=== PATIENT | male | born 1950 | race Caucasian/White ===

== ENCOUNTER → 2019-06-05 15:06 | Outpatient (CLI) | payer MEDICARE, SELFPAY ==
--- NOTE | ~2019-06-05 | CT_ITS ---
EXAMINATION: CT abdomen pelvis wo con DATE: 06/05/2019 15:32 INDICATION: Right lower quadrant pain. History of hernia repair. TECHNIQUE: Computed tomography (CT) of the abdomen and pelvis was performed without intravenous contr ast. The dose-length product was 1069.89 mGy-cm. Automated exposure control and iterative reconstruct ion technique were employed. COMPARISON: CT dated 12/21/2017 FINDINGS: Lung bases are unremarkable. No significant pleural or pericardial effusion. Heart size nor mal. No significant vascular abnormality. There is a vascular stent in the right femoral artery. No e vidence for aneurysm. No lymphadenopathy. Gallstones. The liver, spleen, pancreas, adrenal glands and kidneys are unremarkable. Nonobstructive bowel gas pattern. Colonic diverticulosis without evidence for diverticulitis. Mildly enlarged prosta te gland. No free air or free fluid. Tiny fat-containing umbilical hernia. There are mild degenerativ e changes of the spine and hips. No acute osseous abnormality. There are changes a right inguinal her cornelio repair. IMPRESSION: 1. No acute abdominal abnormality. 2: Cholelithiasis. 3: Mildly enlarged prostate gland. Reviewed, dictated and finalized at location A. SE INSTRUCTOR
== END ==
PROVIDERS: PCP Internal Medicine; Visit Provider Surgery
DX: R10.31 Right lower quadrant pain (principal); K80.20 Calculus of gallbladder without cholecystitis without obstruction; N40.0 Benign prostatic hyperplasia without lower urinary tract symptoms
CPT/HCPCS: 74176

== ENCOUNTER 2019-10-24 07:03 | Outpatient (CLI) | payer MEDICARE, SELFPAY ==
[2019-10-24 08:57] LABS: Alanine Aminotransferase 22 U/L (4-50); Albumin Level 3.9 g/dL (3.5-5.1); Alkaline Phosphatase 45 U/L (38-126); Aspartate Amino Transferase 26 U/L (17-59); Bilirubin,Total 0.5 mg/dL (0.2-1.3); Blood Urea Nitrogen 20 mg/dL (9-20); Calcium 8.8 mg/dL (8.4-10.2); Carbon Dioxide 28 mmol/L (22-30); Chloride 107 mmol/L (98-107); Cholesterol 154 mg/dL (0-200); Estimated Glomerular Filt Rate > 60; Glucose 115 mg/dL (75-110); HDL Direct 44 mg/dL; Potassium 4.1 mmol/L (3.4-5.0); Sodium 140 mmol/L (137-145); Triglycerides 132 mg/dL (<150)
[2019-10-24 09:37] LABS: LDL Cholesterol Direct 81 mg/dL
[2019-10-24 10:05] LABS: Prostate Specific Antigen 3.3 ng/mL (< OR = 4.0)
== END 2019-10-24 07:04 | disposition home or self-care (01) ==
PROVIDERS: PCP Internal Medicine; Visit Provider Internal Medicine
DX: E78.5 Hyperlipidemia, unspecified (principal); I10 Essential (primary) hypertension; E03.9 Hypothyroidism, unspecified; Z12.5 Encounter for screening for malignant neoplasm of prostate; Z79.899 Other long term (current) drug therapy
CPT/HCPCS: 36415; 80053; 80061; 84153; 84443; G0103

== ENCOUNTER 2020-04-25 06:51 | Outpatient (CLI) | payer MEDICARE, SELFPAY ==
[2020-04-25 07:42] LABS: Alanine Aminotransferase 25 U/L (4-50); Albumin Level 3.8 g/dL (3.5-5.1); Alkaline Phosphatase 46 U/L (38-126); Anion Gap 2 mmol/L (8-16); Aspartate Amino Transferase 26 U/L (17-59); Bilirubin,Total 0.7 mg/dL (0.2-1.3); Blood Urea Nitrogen 15 mg/dL (9-20); Calcium 9.3 mg/dL (8.4-10.2); Carbon Dioxide 33 mmol/L (22-30); Chloride 105 mmol/L (98-107); Cholesterol 170 mg/dL (0-200); Estimated Glomerular Filt Rate > 60; Glucose 122 mg/dL (75-110); HDL Direct 44 mg/dL; Potassium 4.6 mmol/L (3.4-5.0); Sodium 140 mmol/L (137-145); Triglycerides 202 mg/dL (<150)
[2020-04-25 07:53] LABS: LDL Cholesterol Direct 80 mg/dL
== END 2020-04-25 06:52 | disposition home or self-care (01) ==
PROVIDERS: PCP Nurse Practitioner; Visit Provider Nurse Practitioner
DX: E78.5 Hyperlipidemia, unspecified (principal); E03.9 Hypothyroidism, unspecified
CPT/HCPCS: 36415; 80053; 80061; 84443

== ENCOUNTER 2021-04-21 10:01 | Emergency (ER) | payer MEDICARE, SELFPAY ==
[2021-04-21 10:15] VITALS: BP 138/73; PULSE 74; RESP 18; TEMP 36.8; O2SAT 98
--- NOTE | 2021-04-21 10:49 | ED.URI ---
HPI - URI/Sore Throat General Chief Complaint: Upper Respiratory Infection Stated Complaint: congestion,cough Time Seen by Provider: 04/21/21 10:26 Source: patient and RN notes reviewed Mode of arrival: ambulatory Limitations: no limitations History of Present Illness HPI Narrative: Patient presents today complaining of a 5-day history of nasal congestion, postnasal drip, productive cough, rhinorrhea. Denies fever or shortness of breath. He has been taking Sinex without relief. MD elicited complaint: cough, rhinorrhea and nasal congestion Related Data Home Medications Medication Instructions Recorded Confirmed amlodipine 5 mg DAILY 04/21/21 04/21/21 aspirin 81 mg PO DAILY 04/21/21 04/21/21 cholecalciferol (vitamin D3) 125 mcg PO DAILY 04/21/21 04/21/21 hydrochlorothiazide 12.5 mg DAILY 04/21/21 04/21/21 mutja-bh-5-kdt-wjg-kaqvgfg-ast 1 cap PO DAILY 04/21/21 04/21/21 [krill oil] levothyroxine 112 mcg DAILY 04/21/21 04/21/21 losartan 100 mg DAILY 04/21/21 04/21/21 omeprazole 40 mg DAILY 04/21/21 04/21/21 rosuvastatin 20 mg DAILY 04/21/21 04/21/21 Allergies Allergy/AdvReac Type Severity Reaction Status Date / Time No Known Allergies Allergy Verified 04/21/21 10:23 Review of Systems Review of Systems: CONSTITUTIONAL: Denies body aches, fever, chills, or sweats. EYES: Denies visual changes, redness, or discharge. ENT: Denies sore throat, or otalgia.+ Postnasal drip, congestion, rhinorrhea CARDIOVASCULAR: Denies chest pain, palpitations, or edema. RESPIRATORY: Denies dyspnea.+ Cough GASTROINTESTINAL: Denies abdominal pain, nausea, vomiting, or diarrhea. GENITOURINARY: Denies dysuria or hematuria. SKIN: Denies rash, itching, or wounds. MUSCULOSKELETAL: Denies back pain, joint pain, or myalgia. NEUROLOGIC: Denies headache, numbness, tingling, or weakness. PSYCH: Denies depression or anxiety. [facility] Past Medical History Medical History (Updated 04/21/21 @ 10:53 by Criss Chand, LINEN SUPPLY LOAD BUILDER, ) Adult hypothyroidism Benign essential hypertension Chronic GERD Congestive heart failure, unspecified Coronary artery disease involving [place] coronary artery of [place] heart History of esophageal reflux On snf drug therapy EVY (obstructive sleep apnea) Other and unspecified hyperlipidemia Recurrent right inguinal hernia Urinary frequency Surgical History Surgical History History of heart artery stent Hx of cataract surgery Family History Family History Father Hypertension Malignant neoplasm of prostate, Onset Age: 78 Patient's father is Family history of aortic aneurysm, Onset Age: 78 Mother Cerebrovascular accident Social History Social History Smoking status: Former smoker Smoking end date: 04/19/07 Alcohol intake: never Comments At time of signature, I have reviewed and agree with nursing past medical, surgical, social and family history unless otherwise noted. Please see nursing chart for further information. There is no relevant family history pertinent to the presenting complaint Exam Narrative: GENERAL: Well-appearing, well-nourished, and in no acute distress. HEAD: Normocephalic, atraumatic. EYES: EOMI. No redness or drainage. Conjunctivae normal. ENT: Mucous membranes pink and moist. Nares clear with rhinorrhea. TMs normal bilaterally. Throat normal. Uvula midline. NECK: Normal AROM. Supple. No lymphadenopathy. CHEST: No respiratory distress. Clear to auscultation. HEART: Regular rate and rhythm. No murmur appreciated. Normal peripheral pulses. EXTREMITIES: Normal range of motion. No edema. SKIN: Warm, dry, no rash. Capillary refill normal. Normal skin turgor. NEURO: No focal deficits. Alert and oriented x3. Gait steady. PSYCH: Normal affect. No signs of depression or anxiety. Cou
== END 2021-04-21 10:57 | disposition home or self-care (01) ==
PROVIDERS: Emergency Provider Nurse Practitioner; PCP Internal Medicine
DX: J06.9 Acute upper respiratory infection, unspecified (principal); Z20.822 Contact with and (suspected) exposure to COVID-19; Z87.891 Personal history of nicotine dependence; E03.9 Hypothyroidism, unspecified; K21.9 Gastro-esophageal reflux disease without esophagitis; I11.0 Hypertensive heart disease with heart failure; I50.9 Heart failure, unspecified; I25.10 Atherosclerotic heart disease of native coronary artery without angina pectoris; G47.33 Obstructive sleep apnea (adult) (pediatric); Z95.5 Presence of coronary angioplasty implant and graft
CPT/HCPCS: 87426; 87804; 99213; C9803; G0463

== ENCOUNTER 2023-02-10 10:20 | Emergency (ER) | payer MEDICARE, SELFPAY ==
[2023-02-10 10:27] VITALS: BP 154/87; PULSE 65; RESP 16; TEMP 36.4; O2SAT 100
--- NOTE | 2023-02-10 11:02 | ECG_ITS ---
Measurements Intervals [place] Rate: 65 P: 25 ND: 178 QRS: -37 QRSD: 87 T: -11 QT: 425 QTc: 444 Interpretive Statements SINUS RHYTHM MARKED LEFT AXIS DEVIATION [QRS AXIS < -30] VOLTAGE CRITERIA FOR LVH [MEETS CRITERIA IN ONE OF: R(aVL), S(V1), R(V5), R(V5/V6)+S(V1)] NONSPECIFIC T-WAVE ABNORMALITY NO PREVIOUS ECG AVAILABLE FOR COMPARISON Electronically Signed On 02-10-2023 11:23:57 CDT by Stacey Rivera M.D.
--- NOTE | 2023-02-10 11:02 | ED.DIZZY ---
HPI - Dizziness General Chief Complaint: Dizziness Stated Complaint: Dizzy and Nausea Source: patient, family and RN notes reviewed History of Present Illness HPI Narrative: 72 yo M presents to urgent care with at side. Pt states at 7 am today, he suddenly became dizzy. Pt reports nausea and a pressure in the back of his head. Denies any numbness, tingling, blurry vision, recent fall or head injury. Denies any vomiting, fevers, or chills. Denies any chest pain or SOB. Pt states he had an episode of dizziness about a week ago that lasted only 30 minutes. Denies any ear ringing but does report some right sided sinus congestion. Pt states he felt fine this morning when he woke up at 5 am. Related Data Home Medications Medication Instructions Recorded Confirmed aspirin 81 mg tablet 81 mg PO DAILY 04/21/21 02/10/23 cholecalciferol (vitamin D3) 125 125 mcg PO DAILY 04/21/21 02/10/23 mcg (5,000 unit) tablet hydrochlorothiazide 12.5 mg capsule 12.5 mg DAILY 04/21/21 02/10/23 krill 1,000 mg-omega-3 170 mg-dha 1 cap PO DAILY 04/21/21 02/10/23 50 mg-epa 80 pu-acmuur-aqpdd capsule (krill oil) losartan 100 mg tablet 100 mg PO DAILY 04/21/21 02/10/23 coenzyme [id number] E 100 mg-100 1 cap PO DAILY 05/12/22 02/10/23 unit capsule Allergies Allergy/AdvReac Type Severity Reaction Status Date / Time No Known Allergies Allergy Verified 02/10/23 10:56 Review of Systems Review of Systems: Pertinent positives and pertinent negatives per HPI. [facility] Past Medical History Medical History Adult hypothyroidism Benign essential hypertension Congestive heart failure, unspecified Coronary artery disease involving [place] coronary artery of [place] heart History of esophageal reflux On intermodal owner operator truck driver drug therapy EVY (obstructive sleep apnea) Other and unspecified hyperlipidemia Recurrent right inguinal hernia Urinary frequency Surgical History Surgical History History of heart artery stent Hx of cataract surgery Family History Family History Father Hypertension Malignant neoplasm of prostate, Onset Age: 78 Patient's father is Family history of aortic aneurysm, Onset Age: 78 Mother Cerebrovascular accident Social History Social History Smoking status: Former smoker Tobacco type: cigars Smoking end date: 04/19/07 Alcohol intake: current Drinks per week: 1 Alcohol use details: occasionally Substance use: never Substance use type: does not use Lack of Transportation: No Lack of Food: Never True Current Housing: I Have Housing Concerned About Future Housing: No Difficulty Paying Gas/Electric Bills: No Difficulty Paying for Meds: No Currently Unemployed: No Education: Bachelor's Degree Difficulty w/ Childcare or Family Care: No Living arrangements: with family Occupation/Education: retired Comments At the time of my signature, I reviewed and agree with the nursing past medical, surgical, social, and family history. There is no relevant family history pertinent to the patient complaint. Exam Narrative: GENERAL: This is a well-nourished, well-developed patient, in no apparent distress. HEAD: normocephalic, atraumatic. EYES: Sclera clear/white. Vision is grossly intact. EARS: External ears normal, auditory canals clear and without drainage, TMs normal without perforation. Hearing grossly intact. NOSE: External nose normal with no obvious nasal discharge, nares without redness, no rhinorrhea. THROAT: Mucous membranes moist, posterior pharynx clear. NECK: Neck supple, non-tender without lymphadenopathy, masses or thyromegaly. CARDIOVASCULAR: Regular rate and rhythm without murmurs, gallops, or rubs. RESPIRATORY: Clear to auscultation.
[2023-02-10 11:10] LABS: Glucose Point of Care 136 mg/dl (65-105)
== END 2023-02-10 11:20 | disposition short-term general hospital (02) ==
PROVIDERS: Emergency Provider Nurse Practitioner Family; PCP Nurse Practitioner
DX: R42 Dizziness and giddiness (principal); Z87.891 Personal history of nicotine dependence; E03.9 Hypothyroidism, unspecified; I11.0 Hypertensive heart disease with heart failure; I50.9 Heart failure, unspecified; I25.10 Atherosclerotic heart disease of native coronary artery without angina pectoris; K21.9 Gastro-esophageal reflux disease without esophagitis; E78.49 Other hyperlipidemia; Z95.5 Presence of coronary angioplasty implant and graft
CPT/HCPCS: 82948; 93005; 99213; 99215; G0463

== ENCOUNTER 2023-02-10 11:48 | Emergency (ER) | payer MEDICARE, SELFPAY ==
[2023-02-10] VITALS (7 sets, daily range): BP systolic 156–172; BP diastolic 80–102; PULSE 61–76; RESP 11–16; TEMP 36.4; O2SAT 98–100
--- NOTE | ~2023-02-10 | CT_ITS ---
Non-contrast Head CT History: Dizziness Technique: Axial non-contrast imaging of the brain was performed. Dose reduction technique was used on this scan by utilizing automated exposure control and iterative reconstruction technique. The dose -length product (DLP) was 357.38 mGy-cm. Findings: There is no evidence of intracranial hemorrhage, mass lesion, or acute infarct. Brain par enchyma appears normal. The ventricles and subarachnoid spaces are normal in size. The calvarium ap pears normal. The visualized paranasal sinuses and mastoid air cells are clear. Impression: No significant abnormality seen. Reviewed, dictated and finalized at location . Impression: No significant abnormality seen.
--- NOTE | 2023-02-10 13:02 | ED.DIZZY ---
HPI - Dizziness General Chief Complaint: Dizziness Stated Complaint: dizzy Time Seen by Provider: 02/10/23 12:29 History of Present Illness HPI Narrative: 72-year-old male present emergency department for evaluation of vertigo symptoms. Patient states when he woke up this morning he felt fine but after eating breakfast he stood up to walk and had onset of a spinning sensation. Patient denies any lightheadedness or sensation he was going to pass out. Patient states the symptoms were worsened with movement. Patient states he bent over to tie his shoes and felt worsening dizziness. Related Data Home Medications Medication Instructions Recorded Confirmed aspirin 81 mg tablet 81 mg PO DAILY 04/21/21 02/10/23 cholecalciferol (vitamin D3) 125 125 mcg PO DAILY 04/21/21 02/10/23 mcg (5,000 unit) tablet hydrochlorothiazide 12.5 mg capsule 12.5 mg DAILY 04/21/21 02/10/23 krill 1,000 mg-omega-3 170 mg-dha 1 cap PO DAILY 04/21/21 02/10/23 50 mg-epa 80 ua-dmkieq-lipyf capsule (krill oil) losartan 100 mg tablet 100 mg PO DAILY 04/21/21 02/10/23 coenzyme [id number] E 100 mg-100 1 cap PO DAILY 05/12/22 02/10/23 unit capsule Allergies Allergy/AdvReac Type Severity Reaction Status Date / Time No Known Allergies Allergy Verified 02/10/23 10:56 Review of Systems Review of Systems: All systems reviewed & are unremarkable except as noted in HPI and below PMFSH Past Medical History Medical History Adult hypothyroidism Benign essential hypertension Congestive heart failure, unspecified Coronary artery disease involving [place] coronary artery of [place] heart History of esophageal reflux On [facility] drug therapy EVY (obstructive sleep apnea) Other and unspecified hyperlipidemia Recurrent right inguinal hernia Urinary frequency Surgical History Surgical History History of heart artery stent Hx of cataract surgery Family History Family History Father Hypertension Malignant neoplasm of prostate, Onset Age: 78 Patient's father is Family history of aortic aneurysm, Onset Age: 78 Mother Cerebrovascular accident Social History Social History Smoking status: Former smoker Tobacco type: cigars Smoking end date: 04/19/07 Alcohol intake: current Drinks per week: 1 Alcohol use details: occasionally Substance use: never Substance use type: does not use Lack of Transportation: No Lack of Food: Never True Current Housing: I Have Housing Concerned About Future Housing: No Difficulty Paying Gas/Electric Bills: No Difficulty Paying for Meds: No Currently Unemployed: No Education: Bachelor's Degree Difficulty w/ Childcare or Family Care: No Living arrangements: with family Occupation/Education: retired Exam Narrative: APPEARANCE: Well appearing, no pain, no distress, well-nourished. HEAD: normocephalic, atraumatic. EYES: PERRLA/EOMI, conjunctivae clear. NOSE: Normal no drainage EARS:TMS clear with good light reflex. Mild cerumen without impaction THROAT: Pharynx clear, no exudate. NECK: Supple. No adenopathy, no masses. RESPIRATORY: Airway patent, respirations nonlabored. Clear to auscultation bilaterally, no rales, rhonchi, wheezing. CARDIOVASCULAR: Regular rate and rhythm without murmurs rubs or gallops. ABDOMINAL: Soft, nontender, nondistended, normal bowel sounds MUSCULOSKELETAL: Moves all extremities. Strength/ROM intact, No edema, No calf tenderness. NEURO: Alert. Cranial nerves II through XII intact. Grossly intact SKIN: Warm, dry. Normal Color Course Course Emergency Course: 72-year-old male presented the ED for evaluation of vertigo. Patient does feel improved with treatment. Patient is afebrile with no leukocytosis and a stab
[2023-02-10] MEDS: MECLIZINE HCL 25 MG TABLET PO (13:14)
[2023-02-10 13:51] LABS: Basophils Percent Auto 0.5 % (0.2-1.2); Eosinophils Absolute Auto 0.1 K/mm3 (0-0.3); Eosinophils Percent Auto 0.9 % (0-4.4); Hematocrit 46.9 % (42.0-52.0); Hemoglobin 15.9 g/dL (14.0-18.0); Immature Granulocyte Absolute 0.02 K/mm3 (0.00-0.031); Immature Granulocyte Percent A 0.3 % (0-0.5); Lymphocytes Absolute Auto 1.56 K/mm3 (0.9-3.2); Lymphocytes Percent Auto 20.8 % (18.3-44.2); Mean Corpuscular HGB Conc 33.9 g/dl (32-36); Mean Corpuscular Hemoglobin 31.5 pg (26-34); Mean Corpuscular Volume 92.9 fl (80-100); Mean Platelet Volume 9.6 fl (7.4-10.4); Monocytes Absolute Auto 0.4 K/mm3 (0.1-0.6); Monocytes Percent Auto 5.7 % (2.6-8.5); Neutrophils Absolute Auto 5.4 K/mm3 (1.3-6.7); Neutrophils Percent Auto 71.8 % (45.5-73.1); Platelet Count Result 235 k/mm3 (150-375); Red Blood Count 5.05 M/mm3 (4.6-6.20); Red Cell Distribution Width 13.1 % (11.5-14.5); White Blood Count 7.5 K/mm3 (4.5-10.0)
[2023-02-10 13:56] LABS: Alanine Aminotransferase 34 U/L (6-50); Alkaline Phosphatase 48 U/L (38-126); Anion Gap 2 mmol/L (8-16); Aspartate Amino Transferase 31 U/L (17-59); Bilirubin,Total 0.9 mg/dL (0.2-1.3); Blood Urea Nitrogen 15 mg/dL (9-20); Calcium 9.2 mg/dL (8.4-10.2); Carbon Dioxide 29 mmol/L (22-30); Chloride 103 mmol/L (98-107); Estimated CRCL calculation 103 ml/min; Estimated Glomerular Filt Rate > 60; Glucose 155 mg/dL (65-110); INR 0.9; Potassium 3.8 mmol/L (3.4-5.0); Prothrombin Time 12.3 Seconds (11.1-14.7); Sodium 134 mmol/L (137-145)
[2023-02-10 13:57] LABS: Partial Thromboplastin Time 24.5 SECONDS (22.3-36.8)
[2023-02-10 14:25] LABS: Influenza A QL RT-PCR Negative (Negative); Influenza B QL RT-PCR Negative (Negative); RSV RNA, RT-PCR Negative (Negative); SARS-CoV-2 RNA PCR Negative (Negative)
== END 2023-02-10 14:45 | disposition home or self-care (01) ==
PROVIDERS: Emergency Provider Emergency Medicine; PCP Nurse Practitioner
DX: R42 Dizziness and giddiness (principal); Z11.52 Encounter for screening for COVID-19; I50.9 Heart failure, unspecified; I11.0 Hypertensive heart disease with heart failure; I25.10 Atherosclerotic heart disease of native coronary artery without angina pectoris; E03.9 Hypothyroidism, unspecified; E78.49 Other hyperlipidemia; G47.33 Obstructive sleep apnea (adult) (pediatric); K21.9 Gastro-esophageal reflux disease without esophagitis; Z95.5 Presence of coronary angioplasty implant and graft; Z98.49 Cataract extraction status, unspecified eye; Z87.891 Personal history of nicotine dependence; Z79.82 Long term (current) use of aspirin
CPT/HCPCS: 36415; 70450; 80053; 82948; 85025; 85610; 85730; 87637; 93005; 99284; A9270

== ENCOUNTER 2023-03-26 15:50 | Emergency (ER) | payer MEDICARE, SELFPAY ==
[2023-03-26 16:10] VITALS: BP 166/80; PULSE 75; RESP 18; TEMP 36.4; O2SAT 97
--- NOTE | 2023-03-26 16:31 | ED.URI ---
HPI - URI/Sore Throat General Chief Complaint: Upper Respiratory Infection Stated Complaint: cough, drainage Time Seen by Provider: 03/26/23 16:31 Source: patient Mode of arrival: ambulatory Limitations: no limitations History of Present Illness HPI Narrative: 72-year-old male presents with complaint of nasal congestion, postnasal drainage, intermittent throat irritation, cough for the past 2 weeks. Reports mild sinus pressure. States has tried ipzj-les-snrzdug cough medication with no relief of cough. Coughing all night. Reports abdominal muscle and back pain aching from coughing. Denies chest pain or shortness of breath. Afebrile. All systems reviewed and negative except as noted above. Related Data Home Medications Medication Instructions Recorded Confirmed aspirin 81 mg tablet 81 mg PO DAILY 04/21/21 03/26/23 cholecalciferol (vitamin D3) 125 125 mcg PO DAILY 04/21/21 03/26/23 mcg (5,000 unit) tablet hydrochlorothiazide 12.5 mg capsule 12.5 mg DAILY 04/21/21 03/26/23 krill 1,000 mg-omega-3 170 mg-dha 1 cap PO DAILY 04/21/21 03/26/23 50 mg-epa 80 vu-guncku-igfld capsule (krill oil) losartan 100 mg tablet 100 mg PO DAILY 04/21/21 03/26/23 coenzyme I25-tovlvwa E 100 mg-100 1 cap PO DAILY 05/12/22 03/26/23 unit capsule Allergies Allergy/AdvReac Type Severity Reaction Status Date / Time No Known Allergies Allergy Verified 03/26/23 16:33 Review of Systems Review of Systems: CONSTITUTIONAL: Denies fever, chills, or sweats. reports fatigue. EYES: Denies visual changes, redness, or discharge. ENT: reports rhinorrhea, congestion, sore throat. Denies otalgia. CARDIOVASCULAR: Denies chest pain, palpitations, or edema. RESPIRATORY: Reports cough. Denies dyspnea. GASTROINTESTINAL: Denies abdominal pain, nausea, vomiting, or diarrhea. GENITOURINARY: Denies dysuria or hematuria. SKIN: Denies rash or itching. MUSCULOSKELETAL: Denies back pain, joint pain, or myalgia. NEUROLOGIC: Denies headache, numbness, or weakness. PSYCHIATRIC: Denies anxiety or depression. All other systems reviewed are negative, except as documented in HPI. PENDING SALE TO [facility] Past Medical History Medical History Adult hypothyroidism Benign essential hypertension Congestive heart failure, unspecified Coronary artery disease involving [place] coronary artery of [place] heart History of esophageal reflux On buttermaker drug therapy EVY (obstructive sleep apnea) Other and unspecified hyperlipidemia Recurrent right inguinal hernia Urinary frequency Surgical History Surgical History History of heart artery stent Hx of cataract surgery Family History Family History Father Hypertension Malignant neoplasm of prostate, Onset Age: 78 Patient's father is Family history of aortic aneurysm, Onset Age: 78 Mother Cerebrovascular accident Social History Social History Smoking status: Former smoker Tobacco type: cigars Smoking end date: 04/19/07 Alcohol intake: current Drinks per week: 1 Alcohol use details: occasionally Substance use: never Substance use type: does not use Lack of Transportation: No Lack of Food: Never True Current Housing: I Have Housing Concerned About Future Housing: No Difficulty Paying Gas/Electric Bills: No Difficulty Paying for Meds: No Currently Unemployed: No Education: Bachelor's Degree Difficulty w/ Childcare or Family Care: No Living arrangements: with family Occupation/Education: retired Comments At time of signature, agree with nursing past medical, surgical, social and family history. There is no relevant family history pertinent to the presenting complaint. Exam Narrative: GENERAL: This is a well-nourished, well-develo
== END 2023-03-26 16:55 | disposition home or self-care (01) ==
PROVIDERS: Emergency Provider Nurse Practitioner Family; PCP Nurse Practitioner
DX: J01.90 Acute sinusitis, unspecified (principal); B96.89 Other specified bacterial agents as the cause of diseases classified elsewhere; R05.1 Acute cough; E03.9 Hypothyroidism, unspecified; I11.0 Hypertensive heart disease with heart failure; I50.9 Heart failure, unspecified; I25.10 Atherosclerotic heart disease of native coronary artery without angina pectoris; E78.5 Hyperlipidemia, unspecified; Z79.899 Other long term (current) drug therapy; Z79.82 Long term (current) use of aspirin; Z87.891 Personal history of nicotine dependence
CPT/HCPCS: 99213; G0463

== ENCOUNTER → 2023-04-08 13:56 | Outpatient (CLI) | payer MEDICARE, SELFPAY ==
--- NOTE | ~2023-04-08 | XR_ITS ---
EXAMINATION: XR chest 2V Exam Date/Time: 04/08/2023 14:20 BUILDING CODE ADMINISTRATOR HISTORY: R05.9 - Cough, unspecified Comparison: 06/20/2007. RESULT: Lines, tubes, and devices: None. Lungs and pleura: Clear. Cardiomediastinal silhouette: Stable. Other: No acute osseous or upper abdominal finding. IMPRESSION: No acute cardiopulmonary process. Reviewed, dictated and finalized at location K. DING CODE ADMINISTRATOR
== END ==
PROVIDERS: PCP Nurse Practitioner Family; Visit Provider Nurse Practitioner Family
DX: R05.9 Cough, unspecified (principal)
CPT/HCPCS: 71046

== ENCOUNTER 2023-04-22 14:45 | Outpatient (CLI) | payer MEDICARE, SELFPAY ==
--- NOTE | ~2023-04-22 | US_ITS ---
EXAMINATION: US carotid duplex BI DATE: 04/22/2023 15:33 INDICATION: Carotid atherosclerosis presenting with vertigo TECHNIQUE: Grayscale, color Doppler, and pulsed Doppler images of the cervical carotid arteries were obtained. The degree of vessel stenosis is placed in one of the following categories: normal, <50%, 5 0-69%, >=70% but less than near-occlusion, near-occlusion, or total occlusion. Note that percent sten osis relative to normal distal artery lumen diameter is indirectly measured from velocity measurement s as described by Mohsen, et al. Radiology 2003; 229:[id number]. COMPARISON: 02/28/2008 FINDINGS: RIGHT: The right common carotid artery (CCA) peak systolic velocity (PSV) is 105 cm/s. The right internal ca rotid artery (ICA) PSV is 92 cm/s. The right ICA end-diastolic velocity (EDV) is 24 cm/s. The right I CA/CCA PSV ratio is 0.9. Grayscale and color Doppler images yield an estimate of <50% diameter reduct ion from plaque in the ICA. The external carotid artery (ECA) PSV is 112 cm/s. There is antegrade evelin w in the right vertebral artery. LEFT: The left CCA PSV is 115 cm/s. The left ICA PSV is 100 cm/s. The left ICA EDV is 32 cm/s. The left ICA /CCA PSV ratio is 0.9. Grayscale and color Doppler images yield an estimate of <50% diameter reductio n from plaque in the ICA. The ECA PSV is 89 cm/s. There is antegrade flow in the left vertebral arter y. IMPRESSION: 1. <50% stenosis in the right internal carotid artery. 2. <50% stenosis in the left internal carotid artery. Reviewed, dictated and finalized at location A. HEAD CRANE INSPECTOR
== END 2023-04-22 14:46 | disposition home or self-care (01) ==
PROVIDERS: PCP Nurse Practitioner Family; Visit Provider Nurse Practitioner Family
DX: R26.89 Other abnormalities of gait and mobility (principal); H81.10 Benign paroxysmal vertigo, unspecified ear; I65.23 Occlusion and stenosis of bilateral carotid arteries
CPT/HCPCS: 93880

== ENCOUNTER 2024-01-16 12:55 | Emergency (ER) | payer MEDICARE, SELFPAY ==
[2024-01-16 13:05] VITALS: BP 136/74; PULSE 73; RESP 18; TEMP 36.6; O2SAT 96
[2024-01-16 13:06] VITALS: BP 136/74; PULSE 73; RESP 18; TEMP 36.6; O2SAT 96
--- NOTE | 2024-01-16 13:31 | ED.EXTPRO ---
HPI - Extremity Problem General Chief complaint: Extremity Problem,Nontraumatic Stated complaint: RT Foot Pain Time Seen by Provider: 01/16/24 13:12 Source: patient and family () Mode of arrival: ambulatory Limitations: no limitations History of Present Illness HPI Narrative: Patient presents today complaining of right foot and lower leg pain x4 days. Pain initially started after he had mowed while on uneven ground. After he had mode he felt that he had strained his foot and calf area and felt that he had to stretch it out well before proceeding. Since that time his pain has persisted in the heel area radiating to the calf as well as in the anterior ankle extending to the [place]. Today when he without with his doing some shopping for longer period of time the pain worsened and patient started limping. He currently rates his pain 5/10. Since onset of pain patient had been elevating his leg to help with pain. He does report some mild swelling at the ankle, but also reports that he has swelling at the left ankle as well at baseline. Today he had some very mild tingling to the tips of his toes that is intermittent in nature. He has been taking Tylenol for pain with some mild relief. Patient's daughter is a nurse and has told patient that he needed to come in to be evaluated for a DVT. Related Data Home Medications Medication Instructions Recorded Confirmed aspirin 81 mg tablet 81 mg PO DAILY 04/21/21 01/16/24 cholecalciferol (vitamin D3) 125 125 mcg PO DAILY 04/21/21 01/16/24 mcg (5,000 unit) tablet hydrochlorothiazide 12.5 mg capsule 12.5 mg DAILY 04/21/21 01/16/24 krill 1,000 mg-omega-3 170 mg-dha 1 cap PO DAILY 04/21/21 01/16/24 50 mg-epa 80 tl-ysyobx-vazea capsule (krill oil) losartan 100 mg tablet 100 mg PO DAILY 04/21/21 01/16/24 coenzyme [id number]-hmivytk E 100 mg-100 1 cap PO DAILY 05/12/22 11/22/23 unit capsule Allergies Allergy/AdvReac Type Severity Reaction Status Date / Time No Known Allergies Allergy Verified 01/16/24 13:05 Review of Systems Review of Systems: CONSTITUTIONAL: Denies body aches, fever, chills, or sweats. EYES: Denies visual changes, redness, or discharge. ENT: Denies rhinorrhea, congestion, sore throat, or otalgia. CARDIOVASCULAR: Denies chest pain, palpitations, or edema. RESPIRATORY: Denies cough or dyspnea. GASTROINTESTINAL: Denies abdominal pain, nausea, vomiting, or diarrhea. GENITOURINARY: Denies dysuria or hematuria. SKIN: Denies rash, itching, or wounds. MUSCULOSKELETAL: Right foot and lower leg pain NEUROLOGIC: Denies headache, numbness, or weakness.+ intermittent toe tingling PSYCH: Denies depression or anxiety. [facility] Past Medical History Medical History Adult hypothyroidism Benign essential hypertension Congestive heart failure, unspecified Coronary artery disease involving [place] coronary artery of [place] heart History of esophageal reflux On [facility] drug therapy EVY (obstructive sleep apnea) Other and unspecified hyperlipidemia Recurrent right inguinal hernia Urinary frequency Surgical History Surgical History History of heart artery stent Hx of cataract surgery Family History Family History Father Hypertension Malignant neoplasm of prostate, Onset Age: 78 Patient's father is Family history of aortic aneurysm, Onset Age: 78 Mother Cerebrovascular accident Social History Social History Smoking status: Former smoker Tobacco type: cigars Smoking end date: 04/19/07 Alcohol intake: current Drinks per week: 1 Alcohol use details: occasionally Substance use: never Substance use type: does not use Do You Feel Safe in your Home?: Yes Lack of Transportation: No Lack of Food: Ne
== END 2024-01-16 13:35 | disposition home or self-care (01) ==
PROVIDERS: Emergency Provider Nurse Practitioner; PCP Nurse Practitioner Family
DX: S86.911A Strain of unspecified muscle(s) and tendon(s) at lower leg level, right leg, initial encounter (principal); X50.0XXA Overexertion from strenuous movement or load, initial encounter; Y93.H9 Activity, other involving exterior property and land maintenance, building and construction; E03.9 Hypothyroidism, unspecified; I10 Essential (primary) hypertension; I50.9 Heart failure, unspecified; I25.10 Atherosclerotic heart disease of native coronary artery without angina pectoris; E78.5 Hyperlipidemia, unspecified; Z95.5 Presence of coronary angioplasty implant and graft; Z87.891 Personal history of nicotine dependence; Z79.82 Long term (current) use of aspirin
CPT/HCPCS: 99212; G0463

== ENCOUNTER 2024-03-20 12:09 | Outpatient (CLI) | payer MEDICARE, SELFPAY ==
--- NOTE | ~2024-03-20 | US_ITS ---
EXAMINATION: US art doppler w press ESA DATE: 03/20/2024 12:51 INDICATION: Peripheral arterial disease. TECHNIQUE: Segmental pressures and plethysmographic and Doppler waveforms of the brachial and lower e xtremity arteries were obtained. COMPARISON: None. FINDINGS: Right and left brachial artery pressures of 138 mm Hg and 141 mm Hg, respectively, are concordant (no rmal difference <= 30 mmHg). The right ankle-brachial index (ANNABELLE) is 0.50 (normal >= 0.9-1.0). The right great toe-brachial index (TBI) is 0.31 (normal >= 0.65). Arterial Doppler waveforms are monophasic from common femoral artery to the ankle. The left ANNABELLE is 1.18. The left TBI is 0.96. Arterial Doppler waveforms are triphasic from common femo ral artery to dorsalis pedis. IMPRESSION: 1. Moderately decreased right ANNABELLE, consistent with right-sided arterial occlusive disease. Reviewed, dictated and finalized at location A. TRUCTION INSPECTOR IMPRESSION: 1. Moderately decreased right ANNABELLE, consistent with right-sided arterial occlusi ve disease.
== END 2024-03-20 12:10 | disposition home or self-care (01) ==
LOC: CHSIMG 12:12
PROVIDERS: PCP Nurse Practitioner Family; Visit Provider Podiatrist Foot & Ankle Surgery
DX: I73.9 Peripheral vascular disease, unspecified (principal)
CPT/HCPCS: 93923

== ENCOUNTER 2024-06-07 09:15 | Outpatient (CLI) | payer MEDICARE, SELFPAY ==
--- NOTE | ~2024-06-07 | US_ITS ---
EXAMINATION: US soft tissue head and neck DATE: 06/07/2024 09:27 INDICATION: Localized enlarged lymph nodes TECHNIQUE: Multiple grayscale and Doppler ultrasound images of the palpable nodule at the right neck were obtained. COMPARISON: None FINDINGS: Vascular flow is seen within a very hypoechoic 3.1 x 1.5 x 3.3 cm lymph node at the right neck. IMPRESSION: 1. Enlarged 3.3 x 3.1 x 1.5 cm right cervical lymph node at the region of concern which could be eith er reactive, metastatic or lymphoma. Depending on the level of clinical suspicion could consider eith er ultrasound-guided core needle biopsy or clinical follow-up with subsequent imaging/biopsy should t here be no decrease in size following resolution of patient's reported cold/cough. Reviewed, dictated and finalized at location A. 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 Enlarged 3.3 x 3.1 x 1.5 cm right cervical lymph node at the region of naveen rn which could be either reactive, metastatic or lymphoma. Depending on the lev el of clinical suspicion could consider either ultrasound-guided core needle bi opsy or clinical follow-up with subsequent imaging/biopsy should there be no de crease in size following resolution of patient's reported cold/cough.
== END 2024-06-07 09:16 | disposition home or self-care (01) ==
LOC: MICIMG 09:16
PROVIDERS: PCP Nurse Practitioner Family; Visit Provider Nurse Practitioner Family
DX: R59.0 Localized enlarged lymph nodes (principal); R05.9 Cough, unspecified; I10 Essential (primary) hypertension; E11.9 Type 2 diabetes mellitus without complications
CPT/HCPCS: 76536